=== PATIENT | female | born 1980 | race Caucasian/White ===

== ENCOUNTER 2022-04-24 20:12 | Emergency (ER) | payer OTHER ==
[~2022-04-24] VITALS: Ht 162.6 cm; Wt 61.0 kg
[2022-04-24] MEDS ORDERED: diphenhydrAMINE 50 MG/ML VIAL IM ONE (20:45)
[2022-04-24] MEDS ORDERED: KETOROLAC 30 MG/ML VIAL. IM ONE (20:45)
[2022-04-24] MEDS ORDERED: PROCHLORPERAZINE 10 MG/2 ML VIAL. IM ONE (20:45)
[2022-04-24] MEDS ORDERED: diphenhydrAMINE 50 MG/ML VIAL IVP ONE (22:15)
[2022-04-24] MEDS ORDERED: KETOROLAC 30 MG/ML VIAL. IVP ONE (22:15)
[2022-04-24] MEDS ORDERED: PROCHLORPERAZINE 10 MG/2 ML VIAL. IV ONE (22:15)
--- NOTE | 2022-04-24 22:19 | PHYS DOC ---
Past Medical History Past Medical History: Migraines Past Surgical History: No Surgical History Smoking Status: Never Smoker Alcohol Use: None General Adult EDM: Chief Complaint: HEADACHE HPI: HPI: Patient is a 41 year old female who presents with migraine that began this morning. Patient rates her pain 10/10 nonradiating in her head. Patient reports associated photophobia, nausea and vomiting. She took her prescribed sumatriptan at home without symptom relief. Patient called her primary care provider, who advised to visit the emergency department. Review of Systems: Review of Systems: ROS negative or noncontributory except as mentioned in HPI. Heart Score: C/O Chest Pain: No Current Medications: Current Medications Medications (Trade) Dose Ordered Sig/Ximena Start Time Stop Time Status Last Admin Dose Admin Diphenhydramine HCl (Benadryl) 25 mg 1X ONCE 04/24/22 20:45 04/24/22 20:55 DC Ketorolac Tromethamine (Toradol 30mg Vial) 30 mg 1X ONCE 04/24/22 20:45 04/24/22 20:55 DC Prochlorperazine Edisylate (Compazine) 10 mg 1X ONCE 04/24/22 20:45 04/24/22 20:55 DC Allergies: Allergies: Allergies Coded Allergies Type Severity Reaction Last Updated Verified No Known Drug Allergies 04/24/22 No Physical Exam: PE: Constitutional: Well developed, well nourished, no acute distress, non-toxic appearance. HENT: Normocephalic, atraumatic, bilateral external ears normal, oropharynx moist, no oral exudates, nose normal. Eyes: PERRL, EOMI, conjunctiva normal, no discharge. Neck: Normal range of motion, no stridor. Skin: Warm, dry, no erythema, no rash. Extremities: No cyanosis, no clubbing, ROM intact, no edema. Neurologic: Alert and oriented x4, normal motor function, normal sensory function, no focal deficits noted. Current Patient Data: Vital Signs: Vital Signs Date Time Temp Pulse Resp B/P (MAP) Pulse Ox O2 Delivery O2 Flow Rate FiO2 04/24/22 20:37 98.1 70 18 131/80 (97) 100 Room Air 98.1 04/24/22 20:27 75 18 131/80 (97) 100 Course & Med Decision Making: Course & Med Decision Making Pertinent Labs and Imaging studies reviewed. (See chart for details) Patient is a 41-year-old female with past medical history that includes migraine who presents with migraine that began this morning. Patient's abortive prescription did not work today. On reevaluation, patient is resting comfortably in bed. She states that typically once her migraines end, they do not recur. Patient has never had neurology evaluation for recurrent migraine. Patient was provided contact information for follow-up today. Return precautions are provided. Patient understands and is agreeable to discharge plan. Dragon Disclaimer: Dragon Disclaimer: This electronic medical record was generated, in whole or in part, using a voice recognition dictation system. Departure Departure Impression: Primary Impression: Migraine headache Qualified Codes: G43.901 - Migraine, unspecified, not intractable, with status migrainosus Disposition: HOME / SELF CARE / HOMELESS Condition: IMPROVED Referrals: HEIDI SENIOR DO (PCP) SPEEDY TORRES MD Patient Instructions: Migraine Headache, [id number], Recurrent Migraine Headache, [id number] Additional Instructions: EMERGENCY DEPARTMENT GENERAL DISCHARGE INSTRUCTIONS Thank you for coming to [facility] Emergency Department (ED) geraldine kumar and trusting us with you care. We trust that you had a positive experience in our Emergency Department. If you wish to speak to the department management, you may call the director at . YOUR FOLLOW UP INSTRUCTIONS ARE FOLLOWS: 1. Follow up with your primary care doctor. If you do not have a primary doctor, please ask for a resource list of physicians or clinics that may be able to assist you with follow up care. 2. The emergency provider has interpreted your imaging studies, if any were ordered. The radiology dairy specialist also reviewed them. If there is a change in the findings, you will be notified in 48 hours when at all possible. 3. If a lab test or culture has been done, your results will be reviewed and you will be notified if you need a change in treatment. 4. Follow instructions verbalized to you and refer to the printouts if needed. ADDITIONAL INSTRUCTIONS AND INFORMATION: 1. Your care today has been supervised by a physician who is specially trained in emergency care. Many problems require more than one evaluation for a complete diagnosis and treatment. We recommend that you schedule your follow up appointment as recommended to ensure complete treatment of you illness or injury. If you are unable to obtain follow up care and continue to have a problem, or if your condition worsens, we recommend that you return to the ED. 2. We are not able to safely determine your condition over the phone nor are we able to give sound medical advice over the phone. For these safety reasons, if you call for medical advice we will ask you to come to the ED for further evaluation. 3. If you have any questions regarding these discharge instructions please call the ED at . SAFETY INFORMATION: In the interest of safety, wellness, and injury prevention; we encourage you to wear your seat belt, if you smoke; quite smoking, and we encourage family to use a protective helmet for bicycling and other sporting events that present an increased risk for head injury. IF YOUR SYMPTOMS WORSEN OR NEW SYMPTOMS DEVELOP, OR YOU HAVE CONCERNS ABOUT YOUR CONDITION; OR IF YOUR CONDITION WORSENS WHILE YOU ARE WAITING FOR YOUR FOLLOW UP APPOINTMENT; EITHER CONTACT YOUR PRIMARY CARE DOCTOR, THE PHYSICIAN WHOSE NAME AND NUMBER YOU WERE GIVEN, OR RETURN TO THE ED IMMEDIATELY. CJ HALE April 24, 2022 22:19
[2022-04-24 22:27] VITALS: BP 108/71
== END 2022-04-24 23:25 | disposition home or self-care (01) ==
LOC: ER 20:12
DX: G43.901 Migraine, unspecified, not intractable, with status migrainosus (principal)
CPT/HCPCS: 96374; 96375; 99284; J0780; J1200; J1885; 99285-25